=== PATIENT | female | born 1940 | race Caucasian/White ===

== ENCOUNTER 2021-05-26 15:06 | Outpatient (CLI) | payer MEDICARE, BC | END 2021-05-26 15:07 | disposition home or self-care (01) | LOC: BICMAMMO 15:06 | PROVIDERS: ATTEND Family Medicine | DX: Z12.31 Encounter for screening mammogram for malignant neoplasm of breast (principal); Z13.820 Encounter for screening for osteoporosis; Z80.3 Family history of malignant neoplasm of breast; M85.89 Other specified disorders of bone density and structure, multiple sites | CPT/HCPCS: 77063; 77067; 77080 ==

== ENCOUNTER 2023-08-30 17:11 | Inpatient (IN) | payer MEDICARE, BC ==
[2023-08-31 00:19] VITALS: BMI 26.2
[2023-08-31] MEDS ORDERED: Ondansetron PF 4 MG/2 ML Vial IVP PRN (01:08)
[2023-08-31] MEDS ORDERED: Acetaminophen 325 MG TAB PO PRN (01:08)
[2023-08-31] MEDS ORDERED: Acetaminophen 650 MG Suppository PR PRN (01:08)
[2023-08-31] MEDS ORDERED: Ondansetron ODT 4 MG TAB PO PRN (01:08)
[2023-08-31 04:54] LABS: #Eosinphils 0.2 thou/uL (0.0-0.7); #Monocytes 0.7 thou/uL (0.11-0.59); #Neutrophils 4.4 thou/uL (1.40-6.50); %Basophils 0.6 % (0.0-1.0); %Eosinophils 3.4 % (0.0-10.0); %Lymphocytes 15.2 % (21.0-51.0); %Monocytes 10.4 % (0.0-10.0); %Neutrophils 70.1 % (42.0-75.0); Hematocrit 35.8 % (36.0-47.0); Hemoglobin 11.7 g/dL (12.0-16.0); Mean Corpuscular HGB CONC 32.7 g/dL (32.0-36.0); Mean Corpuscular Hemoglobin 27.9 pg (27.0-31.0); Mean Corpuscular Volume 85.2 fl (78.0-98.0); Mean Platelet Volume 9.6 fL (7.4-10.4); Platelet Count 248 10x3/uL (130-400); RBC Distribution Width 12.4 % (11.5-14.5); White Blood Cell (WBC) Count 6.3 10x3/uL (4.8-10.8)
[2023-08-31 05:21] LABS: Anion Gap 12 mmol/L (10-20); BUN (Urea Nitrogen) 23 mg/dL (9.8-20.1); Calc. Creatinine Clearance 32 mL/min (70-130); Calcium 8.7 mg/dL (7.8-10.44); Carbon Dioxide 25 mmol/L (23-31); Chloride 101 mmol/L (98-107); Estimated GFR 37; Glucose 93 mg/dL (83-110); Potassium 3.8 mmol/L (3.5-5.1); Sodium 134 mmol/L (136-145)
[2023-08-31] MEDS: Amlodipine 10 MG TAB PO SCH (08:52)
[2023-08-31] MEDS: Furosemide 40 MG/4 ML VIAL SLOW IVP SCH (08:53)
[2023-08-31] MEDS ORDERED: hydrALAZINE 20 MG/ML VIAL SLOW IVP PRN (09:50)
[2023-08-31] MEDS: NIFEdipine XL 30 MG ER.TAB PO SCH (10:43)
[2023-08-31] MEDS: Metoprolol Tartrate 50 MG TAB PO SCH ×2 (10:43→20:49)
[2023-08-31] MEDS: Azithromycin 500 MG in Sodium Chloride 0.9% 250 ML 250 ML IVPB SCH (14:49)
[2023-08-31] MEDS: cefTRIAXone\\ROCEPHIN 1 GM in Sodium Chloride 0.9% 100 ML IVPB SCH (14:50)
[2023-08-31 17:42] LABS: Pleural Fluid, Protein 4.4 g/dL
[2023-08-31 17:46] LABS: RBC Count-Automated (BF) 3693 /cu.mm; WBC/Nucleated-Auto (BF) 484 /cu.mm
[2023-08-31 17:52] LABS: BF Color Yellow; Body Fluid Source Thoracentesis Fluid; Clarity Hazy (Clear); Tube # EDTA
[2023-08-31 19:24] LABS: BF Segmented Neutrophils 6 %; Cell Count Non Hematic 67 %; Lymphocytes 27 %
[2023-08-31] MEDS ORDERED: Lisinopril 10 MG TAB PO SCH (21:00)
[2023-09-01 05:09] LABS: #Eosinphils 0.2 thou/uL (0.0-0.7); #Monocytes 0.6 thou/uL (0.11-0.59); %Basophils 0.6 % (0.0-1.0); %Eosinophils 2.7 % (0.0-10.0); %Lymphocytes 16.1 % (21.0-51.0); %Monocytes 8.5 % (0.0-10.0); %Neutrophils 71.2 % (42.0-75.0); Hematocrit 35.9 % (36.0-47.0); Hemoglobin 11.8 g/dL (12.0-16.0); Mean Corpuscular HGB CONC 32.9 g/dL (32.0-36.0); Mean Corpuscular Hemoglobin 27.9 pg (27.0-31.0); Mean Corpuscular Volume 84.9 fl (78.0-98.0); Platelet Count 244 10x3/uL (130-400); RBC Distribution Width 12.5 % (11.5-14.5); Red Blood Cell (RBC) Count 4.23 mill/uL (4.20-5.40)
[2023-09-01 05:40] LABS: Anion Gap 13 mmol/L (10-20); BUN (Urea Nitrogen) 29 mg/dL (9.8-20.1); Calc. Creatinine Clearance 27 mL/min (70-130); Calcium 8.4 mg/dL (7.8-10.44); Carbon Dioxide 24 mmol/L (23-31); Chloride 103 mmol/L (98-107); Estimated GFR 30; Glucose 84 mg/dL (83-110); Potassium 3.3 mmol/L (3.5-5.1); Sodium 137 mmol/L (136-145)
[2023-09-01] MEDS: Furosemide 40 MG/4 ML VIAL SLOW IVP SCH (09:37)
[2023-09-01] MEDS: NIFEdipine XL 30 MG ER.TAB PO SCH (09:37)
[2023-09-01] MEDS: Amlodipine 10 MG TAB PO SCH (09:37)
[2023-09-01] MEDS: Metoprolol Tartrate 50 MG TAB PO SCH ×2 (09:38→20:37)
[2023-09-01] MEDS: cefTRIAXone\\ROCEPHIN 1 GM in Sodium Chloride 0.9% 100 ML IVPB SCH (14:28)
[2023-09-01] MEDS: Azithromycin 500 MG in Sodium Chloride 0.9% 250 ML 250 ML IVPB SCH (14:29)
[2023-09-01 14:54] LABS: Bacteria/HPF None Seen HPF (None Seen); Bilirubin Negative (Negative); Blood, Urine Negative (Negative); Clarity Clear (Clear); Glucose, Urine (Dipstick) Normal (Negative); Ketone, Urine Negative (Negative); Leukocyte Negative Leu/uL (Negative); Nitrite Negative (Negative); Protein, Urine (Dipstick) Negative (Neg-Trace); RBC/HPF 0-3 HPF (0-3); Specific Gravity, Urine 1.009 (1.002-1.036); Squamous Epithelial 0-3 HPF (0-3); Urobilinogen Normal mg/dL (Less than 2); WBC/HPF 0-3 HPF (0-3); pH, Urine 5.5 (5.0-9.0)
[2023-09-01 15:15] LABS: Creatinine, Urine 95.38 mg/dL (47-110)
[2023-09-01] MEDS ORDERED: Potassium Chloride 20 MEQ TAB PO SCH (17:45)
[2023-09-02] MEDS ORDERED: Furosemide 40 MG/4 ML VIAL SLOW IVP SCH (06:00)
[2023-09-02 06:15] LABS: #Eosinphils 0.3 thou/uL (0.0-0.7); #Monocytes 0.6 thou/uL (0.11-0.59); #Neutrophils 4.3 thou/uL (1.40-6.50); %Basophils 0.7 % (0.0-1.0); %Eosinophils 4.7 % (0.0-10.0); %Lymphocytes 14.4 % (21.0-51.0); %Monocytes 10.1 % (0.0-10.0); %Neutrophils 69.6 % (42.0-75.0); Hematocrit 34.9 % (36.0-47.0); Hemoglobin 11.4 g/dL (12.0-16.0); Mean Corpuscular HGB CONC 32.7 g/dL (32.0-36.0); Mean Corpuscular Volume 85.7 fl (78.0-98.0); Mean Platelet Volume 9.8 fL (7.4-10.4); Platelet Count 230 10x3/uL (130-400); RBC Distribution Width 12.5 % (11.5-14.5); Red Blood Cell (RBC) Count 4.07 mill/uL (4.20-5.40); White Blood Cell (WBC) Count 6.1 10x3/uL (4.8-10.8)
[2023-09-02 06:36] LABS: Anion Gap 11 mmol/L (10-20); BUN (Urea Nitrogen) 35 mg/dL (9.8-20.1); Calc. Creatinine Clearance 26 mL/min (70-130); Calcium 8.3 mg/dL (7.8-10.44); Carbon Dioxide 21 mmol/L (23-31); Chloride 103 mmol/L (98-107); Estimated GFR 29; Glucose 89 mg/dL (83-110); Potassium 4.3 mmol/L (3.5-5.1); Sodium 131 mmol/L (136-145)
[2023-09-02 08:50] VITALS: BP 148/77; TEMP 98
[2023-09-02] MEDS ORDERED: NIFEdipine XL 60 MG ER.TAB PO SCH (09:00)
[2023-09-02] MEDS: Metoprolol Tartrate 50 MG TAB PO SCH (09:46)
[2023-09-02 22:35] LABS: Campy jejuni + coli by PCR Negative (Negative); STEC Shiga Toxin 1+2 Negative (Negative); Salmonella spp. by PCR Negative (Negative); Shigella spp + EIEC by PCR Negative (Negative)
== END 2023-09-02 14:25 | disposition home or self-care (01) | DRG 194 ==
LOC: MSONC 20:39 → OBSVTOIN 08-31 01:08
PROVIDERS: ADMIT Hospitalist; ATTEND Hospitalist
PROC: 0W993ZZ Drainage of Right Pleural Cavity, Percutaneous Approach (ICD-10-PCS; principal; 2023-08-31)
DX: J18.9 Pneumonia, unspecified organism (principal); I31.39 Other pericardial effusion (noninflammatory); J90 Pleural effusion, not elsewhere classified; N13.30 Unspecified hydronephrosis; N17.9 Acute kidney failure, unspecified; I12.9 Hypertensive chronic kidney disease with stage 1 through stage 4 chronic kidney disease, or unspecified chronic kidney disease; N18.30 Chronic kidney disease, stage 3 unspecified; I16.0 Hypertensive urgency; Z86.73 Personal history of transient ischemic attack (TIA), and cerebral infarction without residual deficits
CPT/HCPCS: 36415; 71045; 76770; 80048; 81001; 82150; 82570; 82945; 83615; 83735; 83986; 84156; 84157; 84300; 84443; 84478; 84540; 85025; 85060; 87116; 87206; 87324; 87449; 87505; 89051; 93306; J0456; J0696; J1650; J1940; J3490; J7050

== ENCOUNTER 2024-01-24 08:16 | Outpatient (CLI) | payer MEDICARE, BC ==
[2024-01-24] MEDS ORDERED: Iopamidol 370 76% 100 ML VIAL ONE (09:52)
== END 2024-01-24 08:17 | disposition home or self-care (01) ==
LOC: CT 08:16
PROVIDERS: ATTEND Internal Medicine Hematology & Oncology
DX: C56.1 Malignant neoplasm of right ovary (principal); J90 Pleural effusion, not elsewhere classified; R18.8 Other ascites; R93.89 Abnormal findings on diagnostic imaging of other specified body structures
CPT/HCPCS: 71260; 74177; Q9967

== ENCOUNTER 2024-03-13 16:04 | Inpatient (IN) | payer MEDICARE, BC ==
[~2024-03-13 16:04] MED LIST: Iopamidol-370 76% 500 ML MDV (1 ML CHARGE) ONE
[2024-03-13 18:40] LABS: #Basophils Less than 0.03 10x3/uL (0.0-0.2); %Basophils 0.4 % (0.0-1.0); %Eosinophils 2.3 % (0.0-10.0); %Lymphocytes 14.7 % (21.0-51.0); %Neutrophils 73.4 % (42.0-75.0); Hematocrit 22.9 % (36.0-47.0); Hemoglobin 7.5 g/dL (12.0-16.0); Mean Corpuscular HGB CONC 32.8 g/dL (32.0-36.0); Mean Corpuscular Hemoglobin 27.6 pg (27.0-31.0); Mean Corpuscular Volume 84.2 fL (78.0-98.0); Mean Platelet Volume 9.2 fL (7.4-10.4); Platelet Count 254 10x3/uL (130-400); RBC Distribution Width 15.9 % (11.5-14.5); Red Blood Cell (RBC) Count 2.72 mill/uL (4.20-5.40)
[2024-03-13 18:54] LABS: Magnesium 1.2 mg/dL (1.6-2.6)
[2024-03-13 18:56] LABS: ALT (SGPT) 8 U/L (8-55); AST (SGOT) 11 U/L (5-34); Albumin 2.3 g/dL (3.4-4.8); Alkaline Phosphatase 69 U/L (40-110); Anion Gap 14 mmol/L (10-20); BUN (Urea Nitrogen) 15 mg/dL (9.8-20.1); Bilirubin, Total 0.2 mg/dL (0.2-1.2); Calc. Creatinine Clearance 0 mL/min (70-130); Calcium 7.8 mg/dL (7.8-10.44); Carbon Dioxide 23 mmol/L (23-31); Chloride 98 mmol/L (98-107); Estimated GFR 48; Glucose 92 mg/dL (83-110); Lipase 94 U/L (8-78); Magnesium 1.2 mg/dL (1.6-2.6); Potassium 3.7 mmol/L (3.5-5.1); Protein, Total 5.3 g/dL (5.8-8.1); Sodium 131 mmol/L (136-145)
[2024-03-13 19:01] LABS: Troponin I 0.011 ng/mL (< 0.028)
[2024-03-13] MEDS ORDERED: Magnesium 2 GM/50 ML BAG (IN WATER) ONE (20:43)
[2024-03-13] MEDS ORDERED: Acetaminophen 650 MG Suppository PR PRN (20:49)
[2024-03-13] MEDS ORDERED: Ondansetron ODT 4 MG TAB PO PRN (20:49)
[2024-03-13] MEDS ORDERED: Electrolyte Replacement Protocol 1 EACH FS SCH (21:00)
[2024-03-14] MEDS: Magnesium 2 GM/50 ML(in water) 2 GM in Premix 1 BAG IVPB SCH (00:10)
[2024-03-14] MEDS ORDERED: Acetaminophen 325 MG TAB ONE (00:14)
[2024-03-14] MEDS: Acetaminophen 325 MG TAB PO SCH (00:17)
[2024-03-14] MEDS ORDERED: Acetaminophen 325 MG TAB PO PRN (03:01)
[2024-03-14 04:25] LABS: Bacteria/HPF None Seen HPF (None Seen); Bilirubin Negative (Negative); Blood, Urine Negative (Negative); CAUTI Indications for Culture Immunosuppressed; Clarity Clear (Clear); Glucose, Urine (Dipstick) 30 mg/dL (Negative); Ketone, Urine Negative (Negative); Leukocyte 25 Leu/uL (Negative); Nitrite Negative (Negative); Protein, Urine (Dipstick) 20 mg/dL (Neg-Trace); RBC/HPF 0-3 HPF (0-3); Specific Gravity, Urine 1.021 (1.002-1.036); Squamous Epithelial 0-3 HPF (0-3); Urobilinogen Normal mg/dL (Less than 2)
[2024-03-14 04:25] LABS: #Basophils Less than 0.03 10x3/uL (0.0-0.2); %Basophils 0.4 % (0.0-1.0); %Eosinophils 4.2 % (0.0-10.0); %Lymphocytes 15.9 % (21.0-51.0); %Monocytes 8.6 % (0.0-10.0); %Neutrophils 70.7 % (42.0-75.0); Hematocrit 23.6 % (36.0-47.0); Hemoglobin 7.5 g/dL (12.0-16.0); Mean Corpuscular HGB CONC 31.8 g/dL (32.0-36.0); Mean Corpuscular Hemoglobin 26.8 pg (27.0-31.0); Mean Corpuscular Volume 84.3 fL (78.0-98.0); Mean Platelet Volume 9.5 fL (7.4-10.4); Platelet Count 271 10x3/uL (130-400); RBC Distribution Width 15.9 % (11.5-14.5)
[2024-03-14 04:26] LABS: Urine Culture Reflex Yes Yes
[2024-03-14 05:41] LABS: Anion Gap 15 mmol/L (10-20); BUN (Urea Nitrogen) 13 mg/dL (9.8-20.1); Calc. Creatinine Clearance 44 mL/min (70-130); Carbon Dioxide 20 mmol/L (23-31); Chloride 100 mmol/L (98-107); Estimated GFR 58; Glucose 94 mg/dL (83-110); Potassium 3.3 mmol/L (3.5-5.1); Sodium 132 mmol/L (136-145)
[2024-03-14] MEDS ORDERED: Potassium Chloride 20 MEQ TAB ONE (08:27)
[2024-03-14] MEDS: Potassium Chloride 20 MEQ TAB PO SCH (08:37)
[2024-03-14] MEDS ORDERED: hydrALAZINE 20 MG/ML VIAL SLOW IVP PRN (11:15)
[2024-03-14] MEDS: NIFEdipine XL 60 MG ER.TAB PO SCH ×2 (12:29→20:56)
[2024-03-14] MEDS: Metoprolol Tartrate 50 MG TAB PO SCH ×2 (12:30→20:56)
[2024-03-14] MEDS: Magnesium Oxide 400 MG TAB PO SCH ×2 (12:30→20:58)
[2024-03-14] MEDS: Levothyroxine Sodium 25 MCG TAB PO SCH (12:30)
[2024-03-14 13:14] VITALS: BMI 24.0
[2024-03-14] MEDS: Ondansetron PF 4 MG/2 ML Vial IVP PRN (15:16)
[2024-03-14] MEDS: Famotidine 20 MG TAB PO SCH (20:58)
[2024-03-14] MEDS: Atorvastatin Calcium 40 MG TAB PO SCH (20:58)
[2024-03-14] MEDS: Melatonin 3 MG TAB PO PRN (21:01)
[2024-03-15 05:35] LABS: Albumin 2.2 g/dL (3.4-4.8); Anion Gap 13 mmol/L (10-20); BUN (Urea Nitrogen) 13 mg/dL (9.8-20.1); BUN/Creatinine Ratio 13.54; Calc. Creatinine Clearance 44 mL/min (70-130); Carbon Dioxide 22 mmol/L (23-31); Chloride 102 mmol/L (98-107); Estimated GFR 59; Glucose 99 mg/dL (83-110); Magnesium 1.6 mg/dL (1.6-2.6); Potassium 3.9 mmol/L (3.5-5.1); Sodium 133 mmol/L (136-145)
[2024-03-15] MEDS: Levothyroxine Sodium 25 MCG TAB PO SCH (05:41)
[2024-03-15 07:32] LABS: Hemoglobin 8.8 g/dL (12.0-16.0)
[2024-03-15] MEDS: Isosorbide Mononitrate 30 MG ER.TAB PO SCH (09:03)
[2024-03-15] MEDS: Magnesium 2 GM/50 ML(in water) 2 GM in Premix 1 BAG IVPB SCH (09:04)
[2024-03-15 09:11] VITALS: BP 178/81; TEMP 99.7
[2024-03-15 09:57] VITALS: BMI 24.0
[2024-03-15] MEDS: Aspirin Chewable 81 MG TAB PO SCH (12:38)
[2024-03-16] MEDS ORDERED: Famotidine 20 MG TAB PO SCH (09:00)
[2024-03-16] MEDS ORDERED: Aspirin 81 mg Enteric Coated Tablet PO SCH (09:00)
[2024-03-16] MEDS ORDERED: Potassium Chloride 20 MEQ TAB PO SCH (09:00)
== END 2024-03-15 14:35 | disposition home or self-care (01) | DRG 644 ==
LOC: ERS 16:04 → SURG A 20:15 → ERHOLD 20:51 → SURG A 03-14 12:06
PROVIDERS: ADMIT Student in an Organized Health Care Education/Training Program; ATTEND Internal Medicine
PROC: 30233N1 Transfusion of Nonautologous Red Blood Cells into Peripheral Vein, Percutaneous Approach (ICD-10-PCS; principal; 2024-03-14)
DX: E22.2 Syndrome of inappropriate secretion of antidiuretic hormone (principal); N17.9 Acute kidney failure, unspecified; D64.9 Anemia, unspecified; I10 Essential (primary) hypertension; E83.42 Hypomagnesemia; Z85.43 Personal history of malignant neoplasm of ovary; Z90.710 Acquired absence of both cervix and uterus; Z79.82 Long term (current) use of aspirin; Z79.899 Other long term (current) drug therapy; Z88.5 Allergy status to narcotic agent; Z88.1 Allergy status to other antibiotic agents; Z91.048 Other nonmedicinal substance allergy status; Z79.890 Hormone replacement therapy; Z86.73 Personal history of transient ischemic attack (TIA), and cerebral infarction without residual deficits; E86.0 Dehydration; D63.0 Anemia in neoplastic disease
CPT/HCPCS: 36430; 71045; 74177; 80048; 80053; 81001; 83690; 83735; 84484; 85014; 85018; 85025; 86850; 86900; 86901; 87086; 93005; J1642; J2405; J3475; P9016; Q9967

== ENCOUNTER 2024-03-23 12:09 | Inpatient (IN) | payer MEDICARE, BC ==
[2024-03-23] MEDS ORDERED: Ondansetron PF 4 MG/2 ML Vial ONE ×2 (13:57→14:59)
[2024-03-23] MEDS ORDERED: fentaNYL 50 mcg/mL 1 mL Vial ONE (13:57)
[2024-03-23 14:22] LABS: #Basophils 0.04 10x3/uL (0.0-0.2); #Eosinphils Less than 0.03 10x3/uL (0.0-0.7); %Basophils 0.2 % (0.0-1.0); %Eosinophils 0.1 % (0.0-10.0); %Monocytes 5.7 % (0.0-10.0); %Neutrophils 91.6 % (42.0-75.0); Hematocrit 30.4 % (36.0-47.0); Hemoglobin 9.9 g/dL (12.0-16.0); Mean Corpuscular HGB CONC 32.6 g/dL (32.0-36.0); Mean Corpuscular Hemoglobin 27.1 pg (27.0-31.0); Mean Corpuscular Volume 83.3 fL (78.0-98.0); Mean Platelet Volume 8.6 fL (7.4-10.4); Platelet Count 391 10x3/uL (130-400); RBC Distribution Width 15.1 % (11.5-14.5); Red Blood Cell (RBC) Count 3.65 mill/uL (4.20-5.40)
[2024-03-23 14:36] LABS: INR-International Normal Ratio 1.1; PTT 33.5 sec (22.9-36.1); Prothrombin Time 14.5 sec (12.0-14.7)
[2024-03-23 14:39] LABS: ALT (SGPT) 8 U/L (8-55); AST (SGOT) 11 U/L (5-34); Albumin 2.5 g/dL (3.4-4.8); Alkaline Phosphatase 78 U/L (40-110); Anion Gap 15 mmol/L (10-20); BUN (Urea Nitrogen) 20 mg/dL (9.8-20.1); Bilirubin, Total 0.4 mg/dL (0.2-1.2); Calc. Creatinine Clearance 0 mL/min (70-130); Calcium 8.2 mg/dL (7.8-10.44); Carbon Dioxide 20 mmol/L (23-31); Chloride 97 mmol/L (98-107); Estimated GFR 40; Globulin 3.1 g/dL (2.4-3.5); Glucose 119 mg/dL (83-110); Lipase 54 U/L (8-78); Magnesium 1.5 mg/dL (1.6-2.6); Potassium 4.3 mmol/L (3.5-5.1); Protein, Total 5.6 g/dL (5.8-8.1); Sodium 128 mmol/L (136-145)
[2024-03-23 14:44] LABS: Troponin I Less than 0.010 ng/mL (< 0.028)
[2024-03-23] MEDS ORDERED: Morphine 4 MG/ML VIAL ONE ×2 (14:59→21:22)
[2024-03-23] MEDS ORDERED: Magnesium 2 GM/50 ML BAG (IN WATER) ONE (14:59)
[2024-03-23] MEDS ORDERED: Iopamidol-370 76% 500 ML MDV (1 ML CHARGE) ONE (16:18)
[2024-03-23] MEDS ORDERED: hydrALAZINE 20 MG/ML VIAL ONE (17:46)
[2024-03-23 18:32] LABS: Bilirubin Negative (Negative); Blood, Urine 3+ (Negative); CAUTI Indications for Culture Pelvic or flank pain; Clarity Turbid (Clear); Glucose, Urine (Dipstick) Normal (Negative); Ketone, Urine Negative (Negative); Leukocyte 500 Leu/uL (Negative); Nitrite Negative (Negative); Protein, Urine (Dipstick) 100 mg/dL (Neg-Trace); RBC/HPF 21-50 HPF (0-3); Specific Gravity, Urine 1.014 (1.002-1.036); Urobilinogen Normal mg/dL (Less than 2); WBC/HPF Greater than 50 HPF (0-3)
[2024-03-23 18:34] LABS: Bacteria/HPF 1+ HPF (None Seen)
[2024-03-23 18:35] LABS: Urine Culture Reflex Yes Yes
[2024-03-23] MEDS ORDERED: cefTRIAXone (ROCEPHIN) 2 GM VIAL ONE (19:22)
[2024-03-23] MEDS ORDERED: HYDROcodone/Acetaminophen 5/325 mg Tablet PO PRN (21:11)
[2024-03-24] MEDS: Vancomycin (BATCH) 1.5 GM in Premix 1 BAG IVPB SCH (00:16)
[2024-03-24] MEDS: Furosemide 20 MG (2 mL) VIAL SLOW IVP SCH (00:16)
[2024-03-24 01:26] LABS: Bacteria/HPF None Seen HPF (None Seen); Bilirubin Negative (Negative); Blood, Urine 3+ (Negative); CAUTI Indications for Culture Fever or rigors; Clarity Extra Turbid (Clear); Glucose, Urine (Dipstick) Normal (Negative); Ketone, Urine Negative (Negative); Leukocyte 500 Leu/uL (Negative); Nitrite Negative (Negative); Protein, Urine (Dipstick) 100 mg/dL (Neg-Trace); RBC/HPF Greater than 50 HPF (0-3); Squamous Epithelial None Seen HPF (0-3); Urobilinogen Normal mg/dL (Less than 2); WBC/HPF Greater than 50 HPF (0-3); pH, Urine 5.5 (5.0-9.0)
[2024-03-24 04:21] LABS: #Basophils 0.04 10x3/uL (0.0-0.2); #Eosinphils Less than 0.03 10x3/uL (0.0-0.7); %Basophils 0.2 % (0.0-1.0); %Lymphocytes 3.6 % (21.0-51.0); %Monocytes 6.1 % (0.0-10.0); %Neutrophils 89.4 % (42.0-75.0); Hematocrit 27.4 % (36.0-47.0); Hemoglobin 8.8 g/dL (12.0-16.0); Mean Corpuscular HGB CONC 32.1 g/dL (32.0-36.0); Mean Corpuscular Hemoglobin 27.1 pg (27.0-31.0); Mean Corpuscular Volume 84.3 fL (78.0-98.0); Mean Platelet Volume 9.1 fL (7.4-10.4); Platelet Count 345 10x3/uL (130-400); RBC Distribution Width 15.5 % (11.5-14.5); Red Blood Cell (RBC) Count 3.25 mill/uL (4.20-5.40)
[2024-03-24 04:36] LABS: Anion Gap 15 mmol/L (10-20); BUN (Urea Nitrogen) 21 mg/dL (9.8-20.1); Calc. Creatinine Clearance 30 mL/min (70-130); Carbon Dioxide 18 mmol/L (23-31); Chloride 100 mmol/L (98-107); Estimated GFR 35; Glucose 103 mg/dL (83-110); Potassium 4.7 mmol/L (3.5-5.1); Sodium 128 mmol/L (136-145)
[2024-03-24] MEDS: Cefepime 1 GM in Sodium Chloride 0.9% 100 ML IVPB SCH (05:32)
[2024-03-24] MEDS ORDERED: Furosemide 20 MG (2 mL) VIAL SLOW IVP SCH (06:00)
[2024-03-24] MEDS: Levothyroxine Sodium 50 MCG TAB PO SCH (06:09)
[2024-03-24] MEDS ORDERED: Iopamidol 15 ML ONE (07:40)
[2024-03-24] MEDS: NIFEdipine XL 60 MG ER.TAB PO SCH (08:12)
[2024-03-24] MEDS: DULoxetine 30 MG CAP PO SCH (08:12)
[2024-03-24] MEDS: Metoprolol Tartrate 50 MG TAB PO SCH (08:12)
[2024-03-24] MEDS: Famotidine 20 MG TAB PO SCH (08:12)
[2024-03-24] MEDS: Atorvastatin Calcium 40 MG TAB PO SCH (08:13)
[2024-03-24] MEDS: Cholecalciferol 1,000 UNITS (25 MCG) TAB PO SCH (08:13)
[2024-03-24] MEDS ORDERED: Lidocaine 2% PF 5 ML VIAL ONE (09:37)
[2024-03-24] MEDS ORDERED: PROPOFOL 20 ML ONE (09:37)
[2024-03-24] MEDS ORDERED: fentaNYL 50 mcg/mL 1 mL Vial ONE (09:38)
[2024-03-24] MEDS ORDERED: Rocuronium Bromide 10 MG/ML (10ML VIAL) ONE (10:09)
[2024-03-24] MEDS ORDERED: Ondansetron PF 4 MG/2 ML Vial ONE (10:09)
[2024-03-24] MEDS ORDERED: Dexamethasone 20 MG/5 ML VIAL ONE (10:09)
[2024-03-24] MEDS ORDERED: SUCCINYLCHOLINE/SOD CL,ISO/PF 200 MG/10 ML SYRINGE FS ONE (10:15)
[2024-03-24] MEDS ORDERED: Glycopyrrolate 0.2 MG/ML 5 ML SYRINGE ONE (10:32)
[2024-03-24] MEDS ORDERED: NEOSTIGMINE 3 MG/3 ML SYRINGE ONE (10:32)
[2024-03-24] MEDS ORDERED: PHENYLEPHRINE-NS 100 MCG/ML 10 ML SYRINGE ONE (10:32)
[2024-03-24] MEDS ORDERED: Fentanyl 250 MCG/5 ML VIAL ONE (10:46)
[2024-03-24] MEDS: Sodium Chloride 0.9% 1,000 ML IV SCH (11:58)
[2024-03-24] MEDS ORDERED: cefTRIAXone\\ROCEPHIN 2 GM in Sodium Chloride 0.9% 100 ML IVPB SCH (18:00)
[2024-03-24] MEDS: Ondansetron PF 4 MG/2 ML Vial IVP PRN (20:36)
[2024-03-24] MEDS: guaiFENesin ER 600 MG TAB PO SCH (20:43)
[2024-03-24] MEDS: Docusate 100 MG CAP PO SCH (20:45)
[2024-03-24] MEDS: Trospium 20 MG TAB PO SCH (20:45)
[2024-03-25] MEDS: Acetaminophen 500 MG TAB PO PRN (04:27)
[2024-03-25 06:13] LABS: #Basophils Less than 0.03 10x3/uL (0.0-0.2); #Eosinphils Less than 0.03 10x3/uL (0.0-0.7); %Basophils 0.1 % (0.0-1.0); %Eosinophils 0.1 % (0.0-10.0); %Lymphocytes 3.4 % (21.0-51.0); %Neutrophils 89.8 % (42.0-75.0); Hematocrit 26.8 % (36.0-47.0); Hemoglobin 8.5 g/dL (12.0-16.0); Mean Corpuscular HGB CONC 31.7 g/dL (32.0-36.0); Mean Corpuscular Hemoglobin 26.9 pg (27.0-31.0); Mean Corpuscular Volume 84.8 fL (78.0-98.0); Mean Platelet Volume 8.8 fL (7.4-10.4); Platelet Count 319 10x3/uL (130-400); RBC Distribution Width 15.9 % (11.5-14.5); Red Blood Cell (RBC) Count 3.16 mill/uL (4.20-5.40)
[2024-03-25 06:30] LABS: Anion Gap 14 mmol/L (10-20); BUN (Urea Nitrogen) 22 mg/dL (9.8-20.1); Calc. Creatinine Clearance 28 mL/min (70-130); Calcium 7.9 mg/dL (7.8-10.44); Carbon Dioxide 18 mmol/L (23-31); Chloride 100 mmol/L (98-107); Estimated GFR 32; Glucose 98 mg/dL (83-110); Magnesium 1.9 mg/dL (1.6-2.6); Potassium 4.4 mmol/L (3.5-5.1); Sodium 128 mmol/L (136-145)
[2024-03-25] MEDS: Famotidine 20 MG TAB PO SCH (09:48)
[2024-03-25 15:17] VITALS: BMI 24.3
[2024-03-25] MEDS: Furosemide 40 MG (4 mL) VIAL SLOW IVP SCH (18:44)
[2024-03-26] MEDS ORDERED: Ipratropium/Albuterol 3 ML NEB NEB PRN (01:16)
[2024-03-26] MEDS ORDERED: GUAIFENESIN SF SOLN 200 MG/10 ML UDCUP PO PRN (01:19)
[2024-03-26] MEDS ORDERED: Benzonatate 100 MG CAP PO PRN (01:19)
[2024-03-26 01:44] LABS: Actual Bicarbonate (HCO3a) 22.4 mEq/L (22-28); Base Excess (BEa) -2.1 mEq/L (-2.0 to +3.0); CO2 Tension 37.4 mmHg (35.0-45.0); Calcium, Ionized (arterial) 1.14 mmol/L (1.12-1.30); Carboxyhemoglobin (COHb) 0.4 gm% (0.0-3.0); Hematocrit-ABG 31 % (36.0-47.0); Hemoglobin (Hb) 10.4 g/dL (12.0-16.0); Potassium - ABG Lab 4.16 mmol/L (3.70-5.30); pH, Arterial 7.396 (7.35-7.45)
[2024-03-26 01:45] LABS: O2 Tension (PaO2), arterial 43.6 mmHg (> 60.0)
[2024-03-26 01:47] LABS: Puncture Site RR
[2024-03-26] MEDS: Furosemide 40 MG (4 mL) VIAL SLOW IVP SCH (02:27)
[2024-03-26] MEDS: Morphine 2 MG/ML VIAL SLOW IVP SCH (02:27)
[2024-03-26 03:14] LABS: Base Excess -4.5 mEq/L (-2.0 to +3.0); Calcium, Ionized (venous) 1.08 mmol/L (1.16-1.32); Chloride (VBG) 96 mmol/L (98-106); Hematocrit-VBG 33 % (36.0-47.0); Hemoglobin (Hb) 11.1 g/dL (11.7-16.1); Sodium 131 mmol/L (133-146); pH (venous) 7.377 (7.32-7.43)
[2024-03-26 03:21] LABS: #Basophils 0.03 10x3/uL (0.0-0.2); %Basophils 0.2 % (0.0-1.0); %Eosinophils 0.7 % (0.0-10.0); %Lymphocytes 2.7 % (21.0-51.0); %Monocytes 4.8 % (0.0-10.0); %Neutrophils 91.1 % (42.0-75.0); Hematocrit 30.5 % (36.0-47.0); Mean Corpuscular HGB CONC 32.8 g/dL (32.0-36.0); Mean Corpuscular Hemoglobin 26.8 pg (27.0-31.0); Mean Corpuscular Volume 81.8 fL (78.0-98.0); Mean Platelet Volume 8.7 fL (7.4-10.4); Platelet Count 343 10x3/uL (130-400); RBC Distribution Width 15.9 % (11.5-14.5); Red Blood Cell (RBC) Count 3.73 mill/uL (4.20-5.40)
[2024-03-26 03:38] LABS: Lactic Acid 1.3 mmol/L (0.5-2.2)
[2024-03-26 03:41] LABS: ALT (SGPT) 7 U/L (8-55); AST (SGOT) 13 U/L (5-34); Albumin 2.4 g/dL (3.4-4.8); Alkaline Phosphatase 83 U/L (40-110); Anion Gap 17 mmol/L (10-20); BUN (Urea Nitrogen) 21 mg/dL (9.8-20.1); Bilirubin, Total 0.2 mg/dL (0.2-1.2); Calc. Creatinine Clearance 26 mL/min (70-130); Calcium 8.5 mg/dL (7.8-10.44); Carbon Dioxide 19 mmol/L (23-31); Chloride 99 mmol/L (98-107); Estimated GFR 30; Globulin 3.9 g/dL (2.4-3.5); Glucose 122 mg/dL (83-110); Magnesium 1.8 mg/dL (1.6-2.6); Potassium 4.4 mmol/L (3.5-5.1); Protein, Total 6.3 g/dL (5.8-8.1); Sodium 131 mmol/L (136-145)
[2024-03-26] MEDS: Glycopyrrolate 0.2 MG/ML 5 ML SYRINGE SLOW IVP SCH (04:37)
[2024-03-26] MEDS: Scopolamine 1 mg/72 hour Patch TD SCH (04:55)
[2024-03-26] MEDS: Scopolamine 1 mg/72 hour Patch TOP SCH (05:48)
[2024-03-26] MEDS: Enoxaparin 30 MG (0.3 mL) SYRINGE SC SCH (07:59)
[2024-03-26] MEDS: Aspirin 81 mg Enteric Coated Tablet PO SCH (10:07)
[2024-03-26] MEDS: Albumin 25% 25 GM (100 mL) BOT IVPB SCH (11:50)
[2024-03-26] MEDS ORDERED: Morphine 2 MG/ML VIAL SLOW IVP PRN (12:52)
[2024-03-26] MEDS ORDERED: Lorazepam 2 MG/ML VIAL SLOW IVP PRN (12:53)
[2024-03-26] MEDS: Morphine 4 MG/ML VIAL ONE (13:28)
[2024-03-26] MEDS: Morphine 4 MG/ML VIAL SLOW IVP PRN (13:30)
[2024-03-26 21:10] VITALS: BP 163/78
[2024-03-27 06:30] VITALS: BMI 25.3
[2024-03-27 12:05] VITALS: TEMP 98.1
== END 2024-03-27 13:05 | disposition hospice, home (50) | DRG 853 ==
LOC: ERS 12:09 → 2NO 20:28 → CCU 03-26 01:39
PROVIDERS: ADMIT Internal Medicine; ATTEND Internal Medicine
PROC: 0T768DZ Dilation of Right Ureter with Intraluminal Device, Via Natural or Artificial Opening Endoscopic (ICD-10-PCS; principal; 2024-03-24)
PROC: BT1D1ZZ Fluoroscopy of Right Kidney, Ureter and Bladder using Low Osmolar Contrast (ICD-10-PCS; 2024-03-24)
PROC: 0T9B80Z Drainage of Bladder with Drainage Device, Via Natural or Artificial Opening Endoscopic (ICD-10-PCS; 2024-03-24)
PROC: 4A033R1 Measurement of Arterial Saturation, Peripheral, Percutaneous Approach (ICD-10-PCS; 2024-03-26)
PROC: 3E03329 Introduction of Other Anti-infective into Peripheral Vein, Percutaneous Approach (ICD-10-PCS; 2024-03-26)
DX: A41.51 Sepsis due to Escherichia coli [E. coli] (principal); J69.0 Pneumonitis due to inhalation of food and vomit; J96.01 Acute respiratory failure with hypoxia; Z51.5 Encounter for palliative care; Z66 Do not resuscitate; C56.9 Malignant neoplasm of unspecified ovary; E87.1 Hypo-osmolality and hyponatremia; N13.6 Pyonephrosis; N17.9 Acute kidney failure, unspecified; R18.0 Malignant ascites; J91.0 Malignant pleural effusion; T17.908A Unspecified foreign body in respiratory tract, part unspecified causing other injury, initial encounter; I16.0 Hypertensive urgency; E83.42 Hypomagnesemia; I12.9 Hypertensive chronic kidney disease with stage 1 through stage 4 chronic kidney disease, or unspecified chronic kidney disease; N18.30 Chronic kidney disease, stage 3 unspecified; E03.9 Hypothyroidism, unspecified; Z88.1 Allergy status to other antibiotic agents; Z79.82 Long term (current) use of aspirin; Z79.890 Hormone replacement therapy; Z79.899 Other long term (current) drug therapy; Z98.890 Other specified postprocedural states; Z90.710 Acquired absence of both cervix and uterus
CPT/HCPCS: 36415; 36416; 71045; 74177; 74420; 80048; 80053; 81001; 82550; 82805; 83605; 83690; 83735; 83880; 84484; 85025; 85610; 85730; 86304; 86850; 86900; 86901; 87040; 87077; 87086; 87186; 93005; 93010; 93306; 96374; 96375; 96376; C2617; J0360; J0692; J0696; J1100; J1650; J1940; J2001; J2270; J2272; J2405; J2704; J3010; J3370; J3475; J3490; J7050; P9047; Q9967